=== PATIENT | male | born 1965 | race Caucasian/White ===

== ENCOUNTER 2017-02-21 13:54 | Outpatient (CLI) | payer OTHER ==
--- NOTE | 2017-02-22 07:32 | RAD ---
PA AND LATERAL VIEWS CHEST: HISTORY: Disability evaluation. FINDINGS/IMPRESSION: There is marked elevation of the left hemidiaphragm with scarring/mild atelectatic change in the lef t lung base. The right lung is well expanded. No lobar consolidation, pneumothorax, or large effus ions are seen. The heart size is mildly prominent. No perla pulmonary edema is identified. POS: OFF
--- NOTE | 2017-02-22 07:32 | RAD ---
LEFT ELBOW TWO VIEWS HISTORY: A 51-year-old male for a disability evaluation. FINDINGS: No evidence for acute fracture or dislocation. Very minute degenerative changes involving the radio capitellar joint. IMPRESSION: No fracture, dislocation, or other significant acute osseous abnormality. POS: HAL
== END 2017-02-21 13:55 | disposition home or self-care (01) ==
LOC: NAV RAD 13:54
PROVIDERS: ATTEND Family Medicine
DX: Z02.71 Encounter for disability determination (principal); R06.02 Shortness of breath
CPT/HCPCS: 71020